=== PATIENT | male | born 1980 | race Caucasian/White ===

== ENCOUNTER 2017-01-02 16:23 | Outpatient (CLI) | payer BC ==
--- NOTE | 2017-01-02 17:11 | DIAGNOSTIC IMAGING REPORT ---
PROCEDURE: XR WRIST MIN 3 VIEWS - RIGHT INDICATION: CHRONIC WRIST PAIN TECHNIQUE: Four views of the right wrist. COMPARISON: None. FINDINGS: Normal mineralization. No fractures. Normal osseous alignment. No suspicious soft-tissue calcification or radiodense foreign bodies. IMPRESSION: 1. Intact right wrist.
--- NOTE | 2017-01-02 17:11 | DIAGNOSTIC IMAGING REPORT ---
PROCEDURE: XR KNEE 3 VIEWS - RIGHT INDICATION: CHRONIC RIGHT KNEE PAIN TECHNIQUE: Three views. COMPARISON: None. FINDINGS: Osseous structures and joint spaces are normal. IMPRESSION: 1. Normal right knee.
== END 2017-01-02 23:00 ==
LOC: XR SRH 16:23
DX: M25.531 Pain in right wrist (principal); M25.561 Pain in right knee